=== PATIENT | male | born 2005 | race Asian ===

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

== ENCOUNTER 2024-03-25 21:52 | Emergency (ER) | payer OTHER ==
[~2024-03-25] VITALS: Ht 172.7 cm; Wt 68.2 kg
[2024-03-25 21:55] VITALS: TEMP 97.5
[2024-03-25] MEDS ORDERED: 0.9% SODIUM CHLORIDE 5 ML NEB SOLUTION NEB ONE (22:25)
[2024-03-25 22:28] VITALS: PULSE 75; RESP 18; O2SAT 98
[2024-03-25] MEDS: ALBUTEROL SULFATE 2.5 MG/0.5 ML NEB SOLUTION NEB ONE (22:28)
[2024-03-25] MEDS: DEXAMETHASONE 4 MG TABLET PO ONE (22:37)
[2024-03-25 22:43] VITALS: PULSE 81; RESP 20; O2SAT 100
[2024-03-25 22:47] LABS: COVID AG,FIA SOURCE NASAL SWAB
[2024-03-25 23:07] LABS: SARS-COV2 (COVID) ANTIGEN,FIA Negative (Negative)
[2024-03-25 23:09] LABS: INFLUENZA TYPE A NEGATIVE FOR TYPE A (NEGATIVE); INFLUENZA TYPE B NEGATIVE FOR TYPE B (NEGATIVE)
[2024-03-25] MEDS ORDERED: ALBU18HF12 IH (23:36)
[2024-03-25 23:52] VITALS: BP 119/68; PULSE 81; RESP 20
[2024-03-26] MEDS ORDERED: ALBUTEROL SULFATE HFA 90 MCG/PUFF 8 GM INHALER IH ONE (01:18)
[2024-03-26] MEDS: ALBUTEROL SULFATE HFA 90 MCG/PUFF 8 GM INHALER IH ONE (01:18)
== END 2024-03-26 | disposition home or self-care (01) ==
LOC: EMS 21:53
DX: J06.9 Acute upper respiratory infection, unspecified (principal); F12.90 Cannabis use, unspecified, uncomplicated; Z20.822 Contact with and (suspected) exposure to COVID-19
CPT/HCPCS: 99284; 71045; 87426; 87804; 94640; J8540; J3535; J7613

== ENCOUNTER 2025-07-05 10:35 | Emergency (ER) | payer OTHER ==
[~2025-07-05] VITALS: Ht 172.7 cm; Wt 72.7 kg
[~2025-07-05 10:35] MED LIST: ALBU18HF12 IH
[2025-07-05 10:39] VITALS: BP 137/106; PULSE 85; RESP 18; TEMP 98.6; O2SAT 98
[2025-07-05] MEDS: HYDROCODONE/ACETAMINOPHEN 5-325 MG TABLET PO ONE (11:01)
[2025-07-05] MEDS: LIDOCAINE 1% 10 ML VIAL ID ONE (12:09)
[2025-07-05] MEDS: AMOX TR/POT CLAV 875 MG/125 MG TABLET PO ONE (12:10)
[2025-07-05] MEDS ORDERED: AMOX-457 PO (13:07)
== END 2025-07-05 13:12 | disposition home or self-care (01) ==
LOC: EMS 10:35
DX: S61.412A Laceration without foreign body of left hand, initial encounter (principal); S61.411A Laceration without foreign body of right hand, initial encounter; F12.90 Cannabis use, unspecified, uncomplicated; W54.0XXA Bitten by dog, initial encounter; Y93.89 Activity, other specified; Y92.89 Other specified places as the place of occurrence of the external cause; Y99.8 Other external cause status
CPT/HCPCS: 99283; 73130 ×2; 12002; J3490